=== PATIENT | female | born 1930 | race Caucasian/White ===

== ENCOUNTER 2016-10-16 08:42 | Emergency (ER) | payer MEDICARE, BC ==
--- NOTE | 2016-10-16 09:40 | ED ---
Female Urogenital HPI - General Chief complaint: Urogenital Stated complaint: uti Time Seen by Provider: 10/16/16 09:18 Source: patient, RN notes reviewed Mode of arrival: ambulatory Limitations: no limitations - History of Present Illness Initial comments: 85-year-old female presents emergency Department chief complaint dysuria. Patient states she's had frequency and dysuria over the last few days. Patient states she now has some lower abdominal pain. Patient denies any fever, chills , upper back pains. She states her some low back pain on the right. She denies any trauma. Denies any pain with range of motion, twisting bending. Patient states that she has no left-sided abdominal pain. She does admit to frequent UTIs. - Related Data Home Medications Medication Instructions Recorded Confirmed Ascorbic Acid [Vitamin C] 500 mg PO DAILY 10/16/16 10/16/16 Aspirin 81 mg PO DAILY 10/16/16 10/16/16 Baclofen [Lioresal] 5 mg PO BID 10/16/16 10/16/16 Calcium Carbonate/Vitamin D3 1 each PO DAILY 10/16/16 10/16/16 [Calcium 600-Vit D3 200 Tablet] Cyanocobalamin [Vitamin B-12] 500 mcg PO DAILY 10/16/16 10/16/16 Ergocalciferol [Vitamin D2] 50,000 unit PO Q7D 10/16/16 10/16/16 L.acidoph,Paracasei, B.lactis 1 each PO DAILY 10/16/16 10/16/16 [Probiotic] Losartan Potassium [Cozaar] 100 mg PO DAILY 10/16/16 10/16/16 Magnesium 200 mg PO DAILY 10/16/16 10/16/16 Meclizine [Antivert] 12.5 mg PO DAILY 10/16/16 10/16/16 Metoprolol Tartrate [Lopressor] 75 mg PO BID 10/16/16 10/16/16 Niacin [Niacin ER] 500 mg PO DAILY 10/16/16 10/16/16 [place]-3 Fatty Acids/Fish Oil [Fish 1 each PO DAILY 10/16/16 10/16/16 Oil 1,000 mg Softgel] Omeprazole [PriLOSEC] 20 mg PO DAILY 10/16/16 10/16/16 Potassium 99 mg PO DAILY 10/16/16 10/16/16 Turmeric Root Extract [Turmeric] 500 mg PO DAILY 10/16/16 10/16/16 Ubidecarenone [Co Q-10] 200 mg PO DAILY 10/16/16 10/16/16 Vitamin B Complex 1 each PO DAILY 10/16/16 10/16/16 Vitamin E 400 unit PO DAILY 10/16/16 10/16/16 cloNIDine HCL [Catapres] 0.1 mg PO DAILY PRN 10/16/16 10/16/16 Previous Rx's Medication Instructions Recorded Ciprofloxacin HCl [Cipro] 500 mg PO Q12HR #14 tablet 10/16/16 Allergies Allergy/AdvReac Type Severity Reaction Status Date / Time codeine Allergy Unknown Verified 10/16/16 09:04 nitrofurantoin Allergy Unknown Verified 10/16/16 09:04 [From Macrobid] tramadol [From Ultram] Allergy Unknown Verified 10/16/16 09:04 Review of Systems ROS Statement: Those systems with pertinent positive or pertinent negative responses have been documented in the HPI. ROS Other: All systems not noted in ROS Statement are negative. Past Medical History Past Medical History: Hypertension History of Any Multi-Drug Resistant Organisms: None Reported Past Surgical History: Adenoidectomy, Appendectomy, Back Surgery, Cholecystectomy, Hysterectomy, Tonsillectomy Additional Past Surgical History / Comment(s): cystocele, rectocele Past Psychological History: No Psychological Hx Reported Smoking Status: Never smoker Past Alcohol Use History: None Reported Past Drug Use History: None Reported General Exam Limitations: no limitations General appearance: alert, in no apparent distress Head exam: Present: atraumatic, normocephalic, normal inspection Respiratory exam: Present: normal lung sounds bilaterally. Absent: respiratory distress, wheezes, rales, rhonchi, stridor Cardiovascular Exam: Present: regular rate, normal rhythm, normal heart sounds. Absent: systolic murmur, diastolic murmur, rubs, gallop, clicks GI/Abdominal exam: Present: soft, tenderness (Mild tenderness in the suprapubic region), normal bowel sounds. Absent: distended, guarding, rebound, rigid Back exam: Present: full ROM. Absent: tenderness, CVA tenderness (R), CVA tenderness (L), muscle spasm, paraspinal tenderness, vertebral tenderness Skin exam: Present: warm, dry, intact, normal color. Absent: rash Course Vital Signs 10/16/16 09:01 Temperature 97.8 F Pulse Rate 74 Respiratory 20 Rate Blood Pressure 191/77 O2 Sat by Pulse 99 Oximetry Medical Decision Making - Medical Decision Making 85-year-old female presented for dysuria. Patient has UTI. Patient was started on ciprofloxacin. Patient urine was cultured. Return parameters were discussed. - Lab Data Lab Results 10/16/16 Range/Units 09:30 Urine Color Yellow Urine Appearance Clear (Clear) Urine pH 6.5 (5.0-8.0) Ur Specific [place] 1.017 (1.001-1.035) Urine Protein Trace H (Negative) Urine Glucose (UA) Negative (Negative) Urine Ketones Negative (Negative) Urine Blood Negative (Negative) Urine Nitrate Negative (Negative) Urine Bilirubin Negative (Negative) Urine Urobilinogen <2.0 (<2.0) mg/dL Ur Leukocyte Esterase Moderate H (Negative) Urine RBC 1 (0-5) /hpf Urine WBC 16 H (0-5) /hpf Ur Squamous Epith Cells <1 (0-4) /hpf Urine Bacteria Many H (None) /hpf Urine Mucus Rare H (None) /hpf Disposition Clinical Impression: Urinary tract infection Disposition: HOME SELF-CARE Condition: Stable Instructions: Urinary Tract Infection in Women (ED) Additional Instructions: Please return to the Emergency Department if symptoms worsen or any other concerns. Prescriptions: Ciprofloxacin HCl [Cipro] 500 mg PO Q12HR #14 tablet Time of Disposition: 10:02
[2016-10-16 09:48] LABS: Appearance,Urine Clear (Clear); Bacteria,Urine Many /hpf; Bilirubin,Urine Negative (Negative); Glucose,Urine (UA) Negative (Negative); Ketones,Urine Negative (Negative); Leukocyte Esterase,Urine Moderate (Negative); Mucus,Urine Rare /hpf; Nitrite,Urine Negative (Negative); PH, Urine 6.5 (5.0-8.0); Particle Count 8872; Protein,Urine Trace (Negative); RBC,Urine 1 /hpf (0-5); Specific Gravity,Urine 1.017 (1.001-1.035); Squamous Epithelial Cell,Urine <1 /hpf (0-4); UA Billing (MACRO vs. MICRO) MICRO; Urobilinogen,Urine <2.0 mg/dL (<2.0); WBC,Urine 16 /hpf (0-5)
[2016-10-16 10:11] VITALS: BP 152/84; PULSE 70; RESP 18; TEMP 97.5
== END 2016-10-16 10:11 | disposition home or self-care (01) ==
LOC: EC 08:42
DX: N39.0 Urinary tract infection, site not specified (principal); I10 Essential (primary) hypertension; Z88.5 Allergy status to narcotic agent; Z79.899 Other long term (current) drug therapy
CPT/HCPCS: 81001; 87077; 87086; 87186; 99283

== ENCOUNTER → 2016-12-28 | Outpatient (CLI) | payer MEDICARE, BC ==
--- NOTE | 2016-12-28 17:45 | US ---
EXAMINATION TYPE: US kidneys/renal and bladder DATE OF EXAM: 12/28/2016 5:30 PM COMPARISON: Prior in PACS CLINICAL HISTORY: R10.9 Abdominal pain. Recurrent UTIs EXAM MEASUREMENTS: Right Kidney: 10.3 x 4.7 x 4.5 cm Left Kidney: 9.7 x 5.1 x 4.0 cm Post Void Residual Volume: 96.2 mL Right Kidney: No hydronephrosis or masses seen, prominent column of luisa noted Left Kidney: No hydronephrosis or masses seen, prominent column of luisa noted Bladder: wnl Bilateral Jets seen: Yes Normal Post Void Residual: No IMPRESSION: Negative study
== END | disposition home or self-care (01) ==
LOC: RADUSWWP 16:59
PROVIDERS: ATTEND Internal Medicine Geriatric Medicine
DX: R10.9 Unspecified abdominal pain (principal)
CPT/HCPCS: 76770

== ENCOUNTER → 2017-01-07 | Outpatient (CLI) | payer MEDICARE, BC ==
--- NOTE | 2017-01-08 20:04 | MR ---
EXAMINATION TYPE: MR lumbar spine wo con DATE OF EXAM: 01/07/2017 10:57 AM COMPARISON: No comparisons at this location HISTORY: Lumbar stenosis CONTRAST: 0 mL intravenous MultiHance. TECHNIQUE: Multiplanar, multisequence images of the lumbar spine were acquired. FINDINGS: L5-S1: Disc bulging is present with mild anterior thecal sac compression. Laminectomy has been perfor med. Some susceptibility artifact from pedicle screws is evident. Foramen cannot be evaluated. L4-L5: There is loss of disc height through this level. No residual disc bulge is evident. No spinal canal stenosis. Neural foramen cannot be evaluated. Susceptibility artifact from pedicle screws is present. Laminectomy has been performed.. L3-L4: There is a left paracentral disc bulge with moderate anterior thecal sac compression. Correlat e with left L4 for radicular symptoms. No spinal canal stenosis. Right foramen appears patent. Left foramen is likely narrowed to moderate degree. L2-L3: There is loss of disc height to this level. Mild residual disc bulge has anterior thecal sac c ontact. Facet hypertrophy is present. Ligamentum flavum laxity is present with posterior lateral thec al sac compression. No spinal canal stenosis is evident. Neural foramen are patent. L1-L2: Mild disc bulge is present. This has anterior thecal sac contact. No spinal canal stenosis pre sent. Mild facet hypertrophy is present. Ligamentum flavum laxity is present. Neural foramen are felder nt. T12-L1: No significant disc bulge or disc herniation. No spinal canal stenosis. No foraminal stenos is. Neural foramen are patent. IMPRESSION: 1. 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 Moderate left paracentral disc bulge i s contributing to the stenosis. Correlate with left L4 radicular symptoms. 2. Multilevel loss of disc height. 3. Postsurgical changes L4 and L5. There is some limitation at these levels.
== END ==
LOC: RADMRIMAIN 09:47
PROVIDERS: ATTEND Orthopaedic Surgery
DX: M99.73 Connective tissue and disc stenosis of intervertebral foramina of lumbar region (principal); M51.26 Other intervertebral disc displacement, lumbar region
CPT/HCPCS: 72148

== ENCOUNTER → 2017-01-20 | Outpatient (CLI) | payer MEDICARE, BC ==
[2017-01-20 12:29] LABS: Appearance,Urine Clear (Clear); Basophils % (A) 0 %; Bilirubin,Urine Negative (Negative); CH 31.1; CHCM 32.1; Eosinophils # (A) 0.3 k/uL (0-0.7); Eosinophils % (A) 6 %; Glucose,Urine (UA) Negative (Negative); HCT 37.1 % (34.0-46.0); HGB 11.9 gm/dL (11.4-16.0); Ketones,Urine Negative (Negative); Leukocyte Esterase,Urine Small (Negative); Luc # (Auto) 0.17; Luc % (Auto) 3; Lymphocytes # (A) 1.7 k/uL (1.0-4.8); Lymphocytes % (A) 32 %; MCH 31.3 pg (25.0-35.0); MCHC 32.1 g/dL (31.0-37.0); MCV 97.4 fL (80.0-100.0); Mean Platelet Volume 7.2; Monocytes # (A) 0.5 k/uL (0-1.0); Monocytes % (A) 10 %; Mucus,Urine Rare /hpf; Neutrophils # (A) 2.7 k/uL (1.3-7.7); Neutrophils % (A) 49 %; Nitrite,Urine Negative (Negative); PH, Urine 5.5 (5.0-8.0); Particle Count 1819; Protein,Urine Negative (Negative); RBC 3.81 m/uL (3.80-5.40); RBC,Urine 1 /hpf (0-5); RDW 13.8 % (11.5-15.5); Specific Gravity,Urine 1.019 (1.001-1.035); Squamous Epithelial Cell,Urine 1 /hpf (0-4); UA Billing (MACRO vs. MICRO) MICRO; Urobilinogen,Urine <2.0 mg/dL (<2.0); WBC 5.4 k/uL (3.8-10.6); WBC (Perox) 6.01; WBC,Urine 4 /hpf (0-5)
[2017-01-20 12:34] LABS: INR 1.1 (<1.1); Partial Thromboplastin Time 22.7 sec (22.0-30.0); Prothrombin Time 10.7 sec (9.0-12.0)
[2017-01-20 12:41] LABS: ALT 32 U/L (9-52); AST 23 U/L (14-36); Alkaline Phosphatase 58 U/L (38-126); Anion Gap 9 mmol/L; Blood Urea Nitrogen 27 mg/dL (7-17); Calcium 9.8 mg/dL (8.4-10.2); Carbon Dioxide 25 mmol/L (22-30); Chloride 106 mmol/L (98-107); Glucose 103 mg/dL (74-99); Non-African American GFR(MDRD) 53 (>60 ml/min/1.73 sqM); Potassium 4.4 mmol/L (3.5-5.1); Sodium 140 mmol/L (137-145); Total Bilirubin 0.6 mg/dL (0.2-1.3); Total Protein 6.9 g/dL (6.3-8.2)
== END | disposition home or self-care (01) ==
LOC: LABWHC1 11:25
PROVIDERS: ATTEND Orthopaedic Surgery
DX: Z00.00 Encounter for general adult medical examination without abnormal findings (principal); D68.9 Coagulation defect, unspecified; R82.99 Other abnormal findings in urine
CPT/HCPCS: 36415; 80053; 81001; 85025; 85610; 85730; 86850; 86870; 86880; 86900; 86901; 87070; 87086

== ENCOUNTER 2017-03-28 09:25 | Emergency (ER) | payer MEDICARE, BC ==
[2017-03-28] MEDS ORDERED: SODIUM CHLORIDE 0.9% 1,000 ML IV ONE (10:16)
[2017-03-28] MEDS ORDERED: MORPHINE SULFATE 2 MG/ML SYRINGE IVP ONE (10:16)
[2017-03-28 10:17] LABS: Basophils % (A) 0 %; CH 30.1; Eosinophils # (A) 0.4 k/uL (0-0.7); Eosinophils % (A) 6 %; HCT 30.8 % (34.0-46.0); HDW 2.59; HGB 10.4 gm/dL (11.4-16.0); Luc # (Auto) 0.15; Luc % (Auto) 3; Lymphocytes # (A) 1.9 k/uL (1.0-4.8); Lymphocytes % (A) 33 %; MCH 31.8 pg (25.0-35.0); MCHC 33.8 g/dL (31.0-37.0); MCV 94.2 fL (80.0-100.0); Mean Platelet Volume 7.2; Monocytes # (A) 0.4 k/uL (0-1.0); Monocytes % (A) 7 %; Neutrophils % (A) 51 %; RBC 3.28 m/uL (3.80-5.40); RDW 13.6 % (11.5-15.5); WBC 5.9 k/uL (3.8-10.6); WBC (Perox) 5.97
[2017-03-28] MEDS ORDERED: ONDANSETRON 4 MG/2 ML VIAL IVP STA (10:17)
--- NOTE | 2017-03-28 10:23 | ED ---
Abdominal Pain HPI - General Chief Complaint: Abdominal Pain Stated Complaint: Diverticulosis Pain Time Seen by Provider: 03/28/17 09:49 Source: patient, RN notes reviewed Mode of arrival: wheelchair Limitations: no limitations - History of Present Illness Initial Comments: Patient is an 86-year-old female presents to the emergency room for evaluation of abdominal pain. Patient states on 03/14/17 she was diagnosed with diverticulitis and was placed on Flagyl by her primary care provider. Patient states she has been off of the Flagyl for about 10 days and is still continuing to have left lower quadrant pain. Patient also states that she's been placed on MiraLAX, Dulcolax and Colace for the past few weeks. Patient states she has been passing loose stools. Patient denies dark tarry stools or blood in stools. Patient states she is nauseous but denies vomiting. Patient denies fevers or chills. Patient states she has a history of appendectomy, cholecystectomy and hysterectomy. Patient denies history of bowel obstructions. Patient denies pain or burning during urination, trouble urinating or blood in urine. Patient denies chest pain or shortness of breath, headache or dizziness. Patient states her last colonoscopy was about 5 years ago. Patient states she was told that she does not need another one due to her age. - Related Data Home Medications Medication Instructions Recorded Confirmed Ergocalciferol [Vitamin D2] 50,000 unit PO Q14D 10/16/16 03/28/17 L.acidoph,Paracasei, B.lactis 1 cap PO DAILY 10/16/16 03/28/17 [Probiotic] Losartan Potassium [Cozaar] 100 mg PO DAILY 10/16/16 03/28/17 Omeprazole [PriLOSEC] 20 mg PO DAILY 10/16/16 03/28/17 Acetaminophen Tab [Tylenol Tab] 1,000 mg PO Q6HR PRN 03/28/17 03/28/17 Docusate [Colace] 200 mg PO HS 03/28/17 03/28/17 Meclizine [Antivert] 12.5 mg PO DAILY 03/28/17 03/28/17 Metoprolol Tartrate [Lopressor] 75 mg PO BID 03/28/17 03/28/17 Previous Rx's Medication Instructions Recorded Sulfamethox-Tmp 800-160Mg [Bactrim 1 tab PO Q12HR 7 Days 03/28/17 DS 800-160 mg] Allergies Allergy/AdvReac Type Severity Reaction Status Date / Time celecoxib [From Celebrex] Allergy Unknown Verified 03/28/17 10:19 codeine Allergy Unknown Verified 03/28/17 10:19 hydrocodone Allergy Unknown Verified 03/28/17 10:19 nitrofurantoin Allergy Unknown Verified 03/28/17 10:19 [From Macrobid] tramadol [From Ultram] Allergy Unknown Verified 03/28/17 10:19 Review of Systems ROS Statement: Those systems with pertinent positive or pertinent negative responses have been documented in the HPI. ROS Other: All systems not noted in ROS Statement are negative. Past Medical History Past Medical History: Hypertension History of Any Multi-Drug Resistant Organisms: None Reported Past Surgical History: Adenoidectomy, Appendectomy, Back Surgery, Cholecystectomy, Hysterectomy, Tonsillectomy Additional Past Surgical History / Comment(s): cystocele, rectocele Past Psychological History: No Psychological Hx Reported Smoking Status: Never smoker Past Alcohol Use History: None Reported Past Drug Use History: None Reported General Exam - General Exam Comments Initial Comments: Laying in exam room, no acute distress. Limitations: no limitations General appearance: alert, in no apparent distress Head exam: Present: atraumatic, normocephalic, normal inspection Eye exam: Present: normal appearance ENT exam: Present: normal exam Neck exam: Present: normal inspection Respiratory exam: Present: normal lung sounds bilaterally. Absent: respiratory distress Cardiovascular Exam: Present: regular rate, normal rhythm, normal heart sounds GI/Abdominal exam: Present: soft, tenderness (LLQ), normal bowel sounds. Absent : distended, guarding, rebound, rigid Extremities exam: Present: normal inspection Back exam: Present: normal inspection Neurological exam: Present: alert, oriented X3, CN II-XII intact, normal gait Psychiatric exam: Present: normal affect, normal mood Skin exam: Present: warm, dry, intact, normal color. Absent: rash Course Vital Signs 03/28/17 03/28/17 03/28/17 09:29 10:42 11:30 Temperature 98.9 F 99.9 F H 98.7 F Pulse Rate 72 69 60 Respiratory 20 16 18 Rate Blood Pressure 134/64 146/65 155/85 O2 Sat by Pulse 97 96 99 Oximetry 03/28/17 03/28/17 13:18 14:17 Temperature 98.0 F 97.6 F Pulse Rate 58 L 59 L Respiratory 19 19 Rate Blood Pressure 164/72 176/76 O2 Sat by Pulse 97 96 Oximetry Medical Decision Making - Medical Decision Making Patient is an 86-year-old female presents to the emergency room for evaluation of lower abdominal pain. Labs show no concerning findings. WBC within normal limits. Urinalysis suspicious for urinary tract infection. CT abdomen/pelvis showed no acute findings. Patient started on Rocephin IV and will be sent home on Bactrim. Patient does state she has a history of recurrent urinary tract infections. Patient advised to follow-up with urologist. Advised patient to discontinue laxatives since no sign of constipation or diverticulitis. Patient' s family and patient states they understand everything that was discussed with them. Return parameters discussed. Case discussed with Dr. Bird. - Lab Data Result diagrams: 03/28/17 10:02 03/28/17 10:02 Lab Results 03/28/17 03/28/17 03/28/17 Range/Units 10:02 10:02 10:05 WBC 5.9 (3.8-10.6) k/uL RBC 3.28 L (3.80-5.40) m/uL Hgb 10.4 L (11.4-16.0) gm/dL Hct 30.8 L (34.0-46.0) % MCV 94.2 (80.0-100.0) fL MCH 31.8 (25.0-35.0) pg MCHC 33.8 (31.0-37.0) g/dL RDW 13.6 (11.5-15.5) % Plt Count 259 (150-450) k/uL Neutrophils % 51 % Lymphocytes % 33 % Monocytes % 7 % Eosinophils % 6 % Basophils % 0 % Neutrophils # 3.0 (1.3-7.7) k/uL Lymphocytes # 1.9 (1.0-4.8) k/uL Monocytes # 0.4 (0-1.0) k/uL Eosinophils # 0.4 (0-0.7) k/uL Basophils # 0.0 (0-0.2) k/uL Sodium 138 (137-145) mmol/L Potassium 4.2 (3.5-5.1) mmol/L Chloride 103 (98-107) mmol/L Carbon Dioxide 22 (22-30) mmol/L Anion Gap 13 mmol/L BUN 12 (7-17) mg/dL Creatinine 0.70 (0.52-1.04) mg/dL Est GFR (MDRD) Af Amer >60 (>60 ml/min/1.73 sqM) Est GFR (MDRD) Non-Af >60 (>60 ml/min/1.73 sqM) Glucose 173 H (74-99) mg/dL Calcium 10.0 (8.4-10.2) mg/dL Total Bilirubin 0.3 (0.2-1.3) mg/dL AST 18 (14-36) U/L ALT 25 (9-52) U/L Alkaline Phosphatase 60 (38-126) U/L Total Protein 6.5 (6.3-8.2) g/dL Albumin 3.9 (3.5-5.0) g/dL Amylase 43 (30-110) U/L Lipase 21 L (23-300) U/L Urine Color Yellow Urine Appearance Cloudy H (Clear) Urine pH 5.5 (5.0-8.0) Ur Specific [place] 1.017 (1.001-1.035) Urine Protein 1+ H (Negative) Urine Glucose (UA) Negative (Negative) Urine Ketones Negative (Negative) Urine Blood Negative (Negative) Urine Nitrite Positive H (Negative) Urine Bilirubin Negative (Negative) Urine Urobilinogen <2.0 (<2.0) mg/dL Ur Leukocyte Esterase Large H (Negative) Urine RBC 11 H (0-5) /hpf Urine WBC >182 H (0-5) /hpf Ur Squamous Epith Cells 2 (0-4) /hpf Urine Bacteria Few H (None) /hpf Hyaline Casts 4 H (0-2) /lpf Urine Mucus Rare H (None) /hpf - Radiology Data Radiology results: report reviewed, image reviewed Disposition Clinical Impression: Urinary tract infection Disposition: HOME SELF-CARE Condition: Good Instructions: Urinary Tract Infection in Women (ED) Additional Instructions: Take antibiotics as directed. Drink plenty of water. Please follow up with primary care provider or urologist for further evaluation. If any new symptom arises or symptoms worsen, return to ER as soon as possible. Prescriptions: Sulfamethox-Tmp 800-160Mg [Bactrim DS 800-160 mg] 1 tab PO Q12HR 7 Days Referrals: Flaco Amor MD [Primary Care Provider] - 1-2 days Justin Jansen MD [STAFF PHYSICIAN] - 1-2 days Time of Disposition: 13:57
[2017-03-28 10:26] LABS: Appearance,Urine Cloudy (Clear); Bacteria,Urine Few /hpf; Bilirubin,Urine Negative (Negative); Glucose,Urine (UA) Negative (Negative); Ketones,Urine Negative (Negative); Leukocyte Esterase,Urine Large (Negative); Mucus,Urine Rare /hpf; Nitrite,Urine Positive (Negative); PH, Urine 5.5 (5.0-8.0); Particle Count 6860; Protein,Urine 1+ (Negative); RBC,Urine 11 /hpf (0-5); Specific Gravity,Urine 1.017 (1.001-1.035); Squamous Epithelial Cell,Urine 2 /hpf (0-4); UA Billing (MACRO vs. MICRO) MICRO; Urobilinogen,Urine <2.0 mg/dL (<2.0); WBC,Urine >182 /hpf (0-5)
[2017-03-28 10:33] LABS: ALT 25 U/L (9-52); AST 18 U/L (14-36); Alkaline Phosphatase 60 U/L (38-126); Amylase 43 U/L (30-110); Anion Gap 13 mmol/L; Blood Urea Nitrogen 12 mg/dL (7-17); Carbon Dioxide 22 mmol/L (22-30); Chloride 103 mmol/L (98-107); Glucose 173 mg/dL (74-99); Non-African American GFR(MDRD) >60 (>60 ml/min/1.73 sqM); Potassium 4.2 mmol/L (3.5-5.1); Sodium 138 mmol/L (137-145); Total Bilirubin 0.3 mg/dL (0.2-1.3); Total Protein 6.5 g/dL (6.3-8.2)
--- NOTE | 2017-03-28 10:57 | XR ---
EXAMINATION TYPE: XR KUB DATE OF EXAM: 03/28/2017 10:48 AM CLINICAL HISTORY: Abdominal pain, history of diverticulitis TECHNIQUE: 2 upright KUB images of the abdomen are obtained. COMPARISON: None. FINDINGS: There is some paucity of bowel gas. Scattered gas is seen in nondistended bowel loops throu ghout the abdomen and pelvis. Cholecystectomy clips are present. Extensive postsurgical change lumbar spine is seen. No pneumoperitoneum is identified. Slightly elevated right hemidiaphragm is noted. Pettit rgical clips medial right lower chest likely within breast. Moderate joint space loss both hips is no marco. IMPRESSION: Overall nonspecific favor nonobstructive bowel gas pattern.
--- NOTE | 2017-03-28 12:19 | CT ---
EXAMINATION TYPE: CT abdomen pelvis wo con DATE OF EXAM: 03/28/2017 COMPARISON: NONE HISTORY: 86-year-old female Patient complains of left flank pain. CT DLP: 927 mGycm. Automated exposure control for dose reduction was used. TECHNIQUE: Contiguous axial scanning of the abdomen and pelvis without IV contrast. Coronal and sagit igor reconstructions performed. FINDINGS: There is some scarring suggested along the medial lower anterior right thoracic wall with adjacent kendrick rgical clips. Patchy reticular subpleural density in the peripheral right middle lobe. Dependent area s of atelectasis. No pleural effusion. Small hiatal hernia. Noncontrast appearance of the liver and atrophic pancreas shows no gross abnormality. Subcentimeter hyperdense lesion medial upper pole right kidney probably a small hemorrhagic cyst. The re are proximally 3 calculi in the right kidney measuring up to 3 mm. Calcified granuloma in the spleen. Mild diffuse thickening of the adrenal glands without discrete nod ularity. There is no hydronephrosis on either side or suspicious calcification along the course of either uret er. Mild diffuse wall thickening of the stomach could relate to nondistention. Mild to moderate apical scarring calcifications within the abdominal aorta without aneurysm. No dilated small bowel, free fluid, or free air. No mesenteric or retroperitoneal lymphadenopathy. Mild to moderate stool in the right hemicolon. No pericolonic inflammatory change. Some air is seen nondependent within the bladder. Uterus is surgically absent. Both ovaries are visua lized. No abnormal fluid collection in the pelvis or pelvic lymphadenopathy. There is pelvic floor re laxation and some bladder prolapse along the pelvic floor, (sagittal image 54 and axial image 136 Bones: Extensive posterior lumbar fusion from L1 through S1 1 levels and corresponding laminectomies. IMPRESSION: 1. Mild diffuse wall thickening of the stomach could relate to nondistention. Correlate for gastriti s or infiltrative process. Direct visualization as indicated. 2. Some patchy subpleural opacity within the right middle lobe suspected to represent pleural parenc hymal scarring. Query any prior surgery or radiation to the right chest wall. Follow-up as indicated. 3. Pelvic floor relaxation with some inferior bladder prolapse. 4. Nondependent intraluminal bladder air could relate to catheterization or infection. Clinically co rrelate. 5. Right-sided nephrolithiasis. No suspicious ureteral calculus or hydronephrosis. 6. Small hiatal hernia.
[2017-03-28 13:20] VITALS: RESP 19
[2017-03-28 14:18] VITALS: BP 176/76; PULSE 59; TEMP 97.6
== END 2017-03-28 14:18 | disposition home or self-care (01) ==
LOC: EC 09:25
DX: N39.0 Urinary tract infection, site not specified (principal); R10.32 Left lower quadrant pain; R11.0 Nausea; I10 Essential (primary) hypertension; Z79.899 Other long term (current) drug therapy; Z88.5 Allergy status to narcotic agent; Z88.6 Allergy status to analgesic agent; Z88.8 Allergy status to other drugs, medicaments and biological substances; Z87.19 Personal history of other diseases of the digestive system; Z90.49 Acquired absence of other specified parts of digestive tract
CPT/HCPCS: 36415; 80053; 82150; 83690; 85025; 81001; 87086; 74000; 74176; 99284; 96365; 96375 ×2; 96361; J2405; J0696; J2270

== ENCOUNTER 2017-06-25 09:28 | Emergency (ER) | payer MEDICARE, BC ==
[2017-06-25 09:50] VITALS: RESP 18
[2017-06-25] MEDS ORDERED: SODIUM CHLORIDE 0.9% 1,000 ML IV STA (10:23)
[2017-06-25] MEDS ORDERED: SODIUM CHLORIDE 0.9% 500 ML IV STA (10:23)
[2017-06-25] MEDS ORDERED: METOCLOPRAMIDE 10 MG TAB PO STA (10:24)
[2017-06-25] MEDS ORDERED: LORazepam 1 MG TAB PO STA (10:24)
[2017-06-25 11:16] LABS: Basophils % (A) 1 %; CH 28.9; CHCM 30.5; Eosinophils # (A) 0.3 k/uL (0-0.7); Eosinophils % (A) 4 %; HCT 37.1 % (34.0-46.0); HDW 2.27; HGB 11.6 gm/dL (11.4-16.0); Hypochromasia Slight; Luc # (Auto) 0.23; Luc % (Auto) 3; Lymphocytes % (A) 27 %; MCH 29.7 pg (25.0-35.0); MCHC 31.2 g/dL (31.0-37.0); Mean Platelet Volume 6.8; Monocytes # (A) 0.5 k/uL (0-1.0); Monocytes % (A) 7 %; Neutrophils # (A) 4.2 k/uL (1.3-7.7); Neutrophils % (A) 58 %; RBC 3.91 m/uL (3.80-5.40); RDW 15.3 % (11.5-15.5); WBC 7.1 k/uL (3.8-10.6); WBC (Perox) 7.12
[2017-06-25 11:25] LABS: ALT 30 U/L (9-52); AST 23 U/L (14-36); Alkaline Phosphatase 61 U/L (38-126); Anion Gap 11 mmol/L; Blood Urea Nitrogen 17 mg/dL (7-17); Calcium 9.5 mg/dL (8.4-10.2); Carbon Dioxide 23 mmol/L (22-30); Chloride 105 mmol/L (98-107); Glucose 105 mg/dL (74-99); Non-African American GFR(MDRD) >60 (>60 ml/min/1.73 sqM); Potassium 4.6 mmol/L (3.5-5.1); Sodium 139 mmol/L (137-145); Total Bilirubin 0.2 mg/dL (0.2-1.3)
--- NOTE | 2017-06-25 11:56 | CT ---
EXAMINATION TYPE: CT brain wo con DATE OF EXAM: 06/25/2017 COMPARISON: NONE HISTORY: dizziness, elevated BP CT DLP: 982.3 mGycm Automated exposure control for dose reduction was used. FINDINGS: There are generalized changes of sulcal prominence and ventriculomegaly, compatible with atrophic tavia nge. There is diffuse periventricular white matter lucency, compatible with chronic white matter isch emic change. There is no acute focal lesion, mass effect or midline shift identified. I do not see ev idence of intracranial blood. Visualized portions of the paranasal sinuses and mastoids are clear. No depressed skull fracture is s een. IMPRESSION: 1. NO ACUTE INTRACRANIAL ABNORMALITY. 2. ATROPHIC CHANGE. 3. CHRONIC WHITE MATTER ISCHEMIC CHANGE.
[2017-06-25 12:24] LABS: Appearance,Urine Clear (Clear); Bacteria,Urine Many /hpf; Bilirubin,Urine Negative (Negative); Glucose,Urine (UA) Negative (Negative); Ketones,Urine Negative (Negative); Leukocyte Esterase,Urine Moderate (Negative); Nitrite,Urine Negative (Negative); Particle Count 4826; Protein,Urine Negative (Negative); Specific Gravity,Urine 1.005 (1.001-1.035); Squamous Epithelial Cell,Urine <1 /hpf (0-4); UA Billing (MACRO vs. MICRO) MICRO; Urobilinogen,Urine <2.0 mg/dL (<2.0); WBC,Urine 12 /hpf (0-5)
--- NOTE | 2017-06-25 12:39 | ED ---
Dizziness HPI - General Chief Complaint: Dizziness Stated Complaint: high bp; dizziness; nausea Time Seen by Provider: 06/25/17 10:08 Source: patient Mode of arrival: wheelchair Limitations: no limitations - History of Present Illness Initial Comments: 86-year-old female complaining about dizziness ongoing for about 2 days she noticed her blood pressure was quite high but in the ER today it is fine. She is complaining about nausea no vomiting she denies any headache no neck stiffness no chest pain or shortness of breath she denies any sinus symptoms of TIA or CVA - Related Data Home Medications Medication Instructions Recorded Confirmed Ergocalciferol [Vitamin D2] 50,000 unit PO Q14D 10/16/16 03/28/17 L.acidoph,Paracasei, B.lactis 1 cap PO DAILY 10/16/16 03/28/17 [Probiotic] Losartan Potassium [Cozaar] 100 mg PO DAILY 10/16/16 03/28/17 Omeprazole [PriLOSEC] 20 mg PO DAILY 10/16/16 03/28/17 Acetaminophen Tab [Tylenol Tab] 1,000 mg PO Q6HR PRN 03/28/17 03/28/17 Docusate [Colace] 200 mg PO HS 03/28/17 03/28/17 Meclizine [Antivert] 12.5 mg PO DAILY 03/28/17 03/28/17 Metoprolol Tartrate [Lopressor] 75 mg PO BID 03/28/17 03/28/17 Previous Rx's Medication Instructions Recorded Sulfamethox-Tmp 800-160Mg [Bactrim 1 tab PO Q12HR 7 Days 03/28/17 DS 800-160 mg] Amoxic-Pot Clav 500-125 mg 1 tab PO Q12HR #14 tab 06/25/17 [Augmentin 500-125 mg] Allergies Allergy/AdvReac Type Severity Reaction Status Date / Time celecoxib [From Celebrex] Allergy Unknown Verified 06/25/17 09:50 codeine Allergy Unknown Verified 06/25/17 09:50 hydrocodone Allergy Unknown Verified 06/25/17 09:50 nitrofurantoin Allergy Unknown Verified 06/25/17 09:50 [From Macrobid] tramadol [From Ultram] Allergy Unknown Verified 06/25/17 09:50 Review of Systems ROS Statement: Those systems with pertinent positive or pertinent negative responses have been documented in the HPI. ROS Other: All systems not noted in ROS Statement are negative. Past Medical History Past Medical History: Hyperlipidemia, Hypertension, Mitral Valve Prolapse (MVP) , Syncope Additional Past Medical History / Comment(s): "urinary tract trouble", vertigo History of Any Multi-Drug Resistant Organisms: None Reported Past Surgical History: Adenoidectomy, Appendectomy, Back Surgery, Cholecystectomy, Hysterectomy, Tonsillectomy Additional Past Surgical History / Comment(s): cystocele, rectocele, back surgery 02/16/2017 Past Psychological History: No Psychological Hx Reported Smoking Status: Never smoker Past Alcohol Use History: None Reported Past Drug Use History: None Reported General Exam - General Exam Comments Initial Comments: General: The patient is awake and alert, in no distress, and does not appear acutely ill. GCS is 15 Skin: Skin is warm and dry and no rashes or lesions are noted. Eye: Pupils are equal, round and reactive to light, extra-ocular movements are intact; there is normal conjunctiva bilaterally. Ears, nose, mouth and throat: There are moist mucous membranes and no oral lesions. Neck: The neck is supple, there is no tenderness or JVD. Cardiovascular: There is a regular rate and rhythm. No murmur, rub or gallop is appreciated. Respiratory: To auscultation bilateral, no wheezing no rhonchi no distress respiratory graves noticed Gastrointestinal: Soft, non-distended, non-tender abdomen without masses or organomegaly noted. There is no rebound or guarding present. Bowel sounds are unremarkable. Back: There is no tenderness to palpation in the midline. There is no obvious deformity. Musculoskeletal: Normal ROM, no tenderness, There is no pedal edema. There is no calf tenderness or swelling. No cords were appreciated. Neurological: CN II-XII intact, Cranial nerves III through XII are intact. There are no obvious motor or sensory deficits. Coordination appears grossly intact. Speech is normal. Psychiatric: Cooperative, appropriate mood & affect, normal judgment. Limitations: no limitations Course Vital Signs 06/25/17 06/25/17 06/25/17 09:44 11:09 11:29 Temperature 97.5 F L Pulse Rate 60 57 L 56 L Respiratory 18 18 18 Rate Blood Pressure 147/64 133/64 139/56 O2 Sat by Pulse 97 96 96 Oximetry - Reevaluation(s) Reevaluation #1: She was reassessed at 1230, she simply trying a discussed her lab findings a urinalysis is positive for UTI head CT is normal CBC and compressive metabolic panel looks good and she feels better she be discharged home on Augmentin 500 mg 3 times a day for 7 days she will follow with family doctor and she will also take some reglan 5 mg every 12 when necessary 06/25/17 12:36 EKG Findings - EKG Comments: EKG Findings:: EKG normal sinus rhythm home that bradycardia ventricular rate is 68 [place] [address] QRS duration is 82 QT/QTc is 458/449. This EKG does not appear any ST elevation or ST depression Medical Decision Making - Lab Data Result diagrams: 06/25/17 11:05 06/25/17 11:05 Lab Results 06/25/17 06/25/17 06/25/17 Range/Units 11:05 11:05 11:47 WBC 7.1 (3.8-10.6) k/uL RBC 3.91 (3.80-5.40) m/uL Hgb 11.6 (11.4-16.0) gm/dL Hct 37.1 (34.0-46.0) % MCV 95.0 (80.0-100.0) fL MCH 29.7 (25.0-35.0) pg MCHC 31.2 (31.0-37.0) g/dL RDW 15.3 (11.5-15.5) % Plt Count 249 (150-450) k/uL Neutrophils % 58 % Lymphocytes % 27 % Monocytes % 7 % Eosinophils % 4 % Basophils % 1 % Neutrophils # 4.2 (1.3-7.7) k/uL Lymphocytes # 2.0 (1.0-4.8) k/uL Monocytes # 0.5 (0-1.0) k/uL Eosinophils # 0.3 (0-0.7) k/uL Basophils # 0.0 (0-0.2) k/uL Hypochromasia Slight Sodium 139 (137-145) mmol/L Potassium 4.6 (3.5-5.1) mmol/L Chloride 105 (98-107) mmol/L Carbon Dioxide 23 (22-30) mmol/L Anion Gap 11 mmol/L BUN 17 (7-17) mg/dL Creatinine 0.73 (0.52-1.04) mg/dL Est GFR (MDRD) Af Amer >60 (>60 ml/min/1.73 sqM) Est GFR (MDRD) Non-Af >60 (>60 ml/min/1.73 sqM) Glucose 105 H (74-99) mg/dL Calcium 9.5 (8.4-10.2) mg/dL Total Bilirubin 0.2 (0.2-1.3) mg/dL AST 23 (14-36) U/L ALT 30 (9-52) U/L Alkaline Phosphatase 61 (38-126) U/L Total Protein 7.0 (6.3-8.2) g/dL Albumin 4.0 (3.5-5.0) g/dL Urine Color Light Yellow Urine Appearance Clear (Clear) Urine pH 7.0 (5.0-8.0) Ur Specific [place] 1.005 (1.001-1.035) Urine Protein Negative (Negative) Urine Glucose (UA) Negative (Negative) Urine Ketones Negative (Negative) Urine Blood Negative (Negative) Urine Nitrite Negative (Negative) Urine Bilirubin Negative (Negative) Urine Urobilinogen <2.0 (<2.0) mg/dL Ur Leukocyte Esterase Moderate H (Negative) Urine WBC 12 H (0-5) /hpf Ur Squamous Epith Cells <1 (0-4) /hpf Urine Bacteria Many H (None) /hpf Disposition Clinical Impression: Dizziness, UTI (urinary tract infection) Disposition: HOME SELF-CARE Condition: Good Instructions: Dizziness (ED) Prescriptions: Amoxic-Pot Clav 500-125 mg [Augmentin 500-125 mg] 1 tab PO Q12HR #14 tab Referrals: Flaco Amor MD [Primary Care Provider] - 1-2 days
[2017-06-25 13:10] VITALS: BP 112/65; PULSE 91; TEMP 97.1
== END 2017-06-25 13:08 | disposition home or self-care (01) ==
LOC: EC 09:28
DX: N39.0 Urinary tract infection, site not specified (principal); R42 Dizziness and giddiness; R40.2412 Glasgow coma scale score 13-15, at arrival to emergency department; I34.1 Nonrheumatic mitral (valve) prolapse; I10 Essential (primary) hypertension; Z79.899 Other long term (current) drug therapy; Z88.1 Allergy status to other antibiotic agents; Z88.5 Allergy status to narcotic agent; Z88.6 Allergy status to analgesic agent; Z88.8 Allergy status to other drugs, medicaments and biological substances
CPT/HCPCS: 36415; 70450; 80053; 81001; 85025; 93005; 96360; 99284

== ENCOUNTER → 2017-10-04 | Outpatient (CLI) | payer MEDICARE, BC ==
--- NOTE | 2017-10-04 11:46 | BD ---
EXAMINATION TYPE: MG DEXA axial skeleton. DATE OF EXAM: 10/04/2017 COMPARISON: NONE CLINICAL HISTORY: Osteoporosis screening . Postmenopausal female. Height: 5 FT Weight: 159 FRAX RISK QUESTIONS: Alcohol (3 or more units per day): NO Family History (Parent hip fracture): NO Glucocorticoids (More than 3mos): NO (Ex: prednisone, prednisolone, methylprednisolone, dexamethasone, and hydrocortisone). History of Fracture in Adulthood: NO Secondary Osteoporosis: 1. Type 1 Diabetes: NO 2. Hyperthyroidism: NO 3. Menopause before 45: NO 4. Malnutrition: NO 5. Chronic liver disease: NO Rheumatoid Arthritis: NO Current Tobacco Use: NO RISK FACTORS HISTORY OF: Surgery to Spine/Hip(right/left)/Wrist (right/left): LUMBAR SURG X3 When: Active: YES Postmenopausal woman: AGE 50 Take estrogen and/or progesterone medications: TOOK FROM AGE [age] NO LONGER Lost more than 2 inches in height since high school: YES MEDICATIONS: Additional Medications: METOPROLOL, LOSARTIN, MEDIZINE, VIT D3, Additional History: EXAM MEASUREMENTS: Bone mineral density about the R hip (g/cm2): 0.684 Bone mineral density about the L hip (g/cm2): 0.705 T Score values are as follows: -----R Neck: -2.5 -----L Neck: -2.4 -----R Total: -1.7 -----L Total: -1.9 BASELINE IMPRESSION: Osteopenia (T Score between -2.5 and -1) as noted by T score values with regards to both hips. Values approach osteoporosis. There is slightly increased risk of fracture and the patient may be considered for treatment. Re-Screen 2-5 years. NOTE: T-SCORE=SD OF THE YOUNG ADULT MEAN.
--- NOTE | 2017-10-06 07:22 | MM ---
Reason for exam: screening (asymptomatic). Last mammogram was performed 1 year and 3 months ago. History: Patient is postmenopausal and history of breast cancer. Family history of breast cancer in paternal aunt. Radiation therapy of the right breast, June 2010. Took progesterone for 20 years. Physical Findings: A clinical breast exam by your physician is recommended on an annual basis and results should be correlated with mammographic findings. MG 3D Screening Mammo W/Cad Bilateral CC and MLO view(s) were taken. Prior study comparison: July 04, 2016, mammogram, performed at [facility]. June 19, 2013, mammogram, performed at [facility]. The breast tissue is heterogeneously dense. This may lower the sensitivity of mammography. Stable benign calcifications. Focal asymmetry upper outer left breast 4cm from nipple. This finding is changed when compared with previous exams. ASSESSMENT: Incomplete: need additional imaging evaluation, BI-RAD 0 RECOMMENDATION: Special view mammogram of the left breast. If lesion persists on supplemental views, image directed ultrasound is recommended. [facility] will attempt to contact patient to return for supplemental views and ultrasound if indicated.
== END | disposition home or self-care (01) ==
LOC: RADMAMWWP 10:23
PROVIDERS: ATTEND Internal Medicine Geriatric Medicine
DX: M85.852 Other specified disorders of bone density and structure, left thigh (principal); M85.851 Other specified disorders of bone density and structure, right thigh
CPT/HCPCS: 77063; 77067; 77080

== ENCOUNTER → 2017-10-11 | Outpatient (CLI) | payer MEDICARE, BC ==
--- NOTE | 2017-10-11 13:54 | MM ---
Reason for exam: additional evaluation requested from abnormal screening. Last mammogram was performed less than 1 month ago. History: Patient is postmenopausal and history of breast cancer. Family history of breast cancer in paternal aunt. Radiation therapy of the right breast, June 2010. Took progesterone for 20 years. Physical Findings: Nurse did not find any significant physical abnormalities on exam. MG 3D Work Up W/Cad LT CC, MLO, ML, spot compression CC, and spot compression MLO view(s) were taken of the left breast. Prior study comparison: October 04, 2017, bilateral MG 3d screening mammo w/cad. July 04, 2016, mammogram, performed at [facility]. June 19, 2013, mammogram, performed at [facility]. The breast tissue is heterogeneously dense. This may lower the sensitivity of mammography. Finding: There is a 6 mm equal density, circumscribed irregular mass located 5 cm from the nipple in the lower outer quadrant, middle position of the left breast, this is developing. New finding since July 04, 2016. These results were verbally communicated with the patient and result sheet given to the patient on 10/11/17. ASSESSMENT: Incomplete: need additional imaging evaluation, BI-RAD 0 RECOMMENDATION: Ultrasound of the left breast.
--- NOTE | 2017-10-11 14:00 | USB ---
Reason for exam: additional evaluation requested from abnormal screening. History: Patient is postmenopausal and history of breast cancer. Family history of breast cancer in paternal aunt. Radiation therapy of the right breast, June 2010. Took progesterone for 20 years. US Breast Workup Limited LT Left breast ultrasound demonstrates a 0.5 x 0.4 x 0.4cm solid, lesion at 5 o'clock, suspicious, biopsy recommended. These results were verbally communicated with the patient and result sheet given to the patient on 10/11/17. ASSESSMENT: Suspicious, BI-RAD 4 RECOMMENDATION: Surgical consultation and ultrasound core biopsy of the left breast. Called Dr. Amor with mammographic findings and has scheduled an appointment for the patient for 10/19/17 at 10:[address] Delgado. PRELIMINARY REPORT CALLED AND FAXED TO DR. DELGADO ON 10/11/17.
== END | disposition home or self-care (01) ==
LOC: RADMAMWWP 10:01
PROVIDERS: ATTEND Internal Medicine Geriatric Medicine
DX: R92.8 Other abnormal and inconclusive findings on diagnostic imaging of breast (principal)
CPT/HCPCS: 77065; 76642; G0279

== ENCOUNTER → 2017-11-28 | Day surgery (SDC) | payer MEDICARE, BC ==
[2017-11-28 13:45] VITALS: RESP 16
[2017-11-28 14:11] VITALS: BP 140/66; PULSE 70; TEMP 98.7; BMI 30.4
--- NOTE | 2017-11-28 14:31 | USB ---
Reason for exam: clinical finding. History: Patient is postmenopausal and has history of breast cancer at age 86. Family history of breast cancer in paternal aunt. Malignant US biopsy breast VAD LT of the left breast, October 30, 2017. Radiation therapy of the right breast, June 2010. Took progesterone for 20 years. US Breast Limited LT Left breast ultrasound demonstrates a 0.9 x 0.9 x 0.5cm irregular, solid, hypoechoic, vascular lesion at 2 o'clock. These results were verbally communicated with the patient and result sheet given to the patient on 11/28/17. ASSESSMENT: Suspicious, BI-RAD 4 RECOMMENDATION: Ultrasound core biopsy of the left breast.
--- NOTE | 2017-11-28 15:30 | USB ---
EXAMINATION TYPE: US biopsy breast VAD LT DATE OF EXAM: 11/28/2017 CLINICAL HISTORY: R92.8 ABNORMAL MAMMOGRAM. TECHNIQUE: Ultrasound guided core biopsy of left breast. COMPARISON: Mammogram 10/11/2017, 10/30/2017 FINDINGS: Mammographic images and ultrasound images were reviewed for wire localization. Given the positive malignancy results at the prior ultrasound biopsy site, in retrospect examination there appears to be a suspicious persistent density on mammogram. Has this would change the patient's surgery and management if this second area is positive report was called case discussed with Dr. Nichols by Dr. Salgado. An ultrasound will be performed. If the ultrasound is positive biopsy. Ultrasound had suspicious findings in the patient was set up for an ultrasound guided core biopsy. The procedure of ultrasound guided core biopsy was explained to the patient. Benefits, alternatives, and risks were discussed. An informed consent was then obtained. A timeout was performed. The patient was placed in supine positioning for imaging and for the procedure. The overlying skin was prepped and draped in usual sterile fashion. Lidocaine buffered with bicarbonate was used as anesthetic into the skin and subcutaneous tissue up to area of concern in the left breast. A armin was made with surgical scalpel. Under ultrasound guidance, a 12-gauge vacuum assisted biopsy gun device was used to obtain 6 core samples. Following this, a biopsy clip was left in lesion. The patient tolerated the procedure well without any immediate complication. Bleeding was controlled with direct pressure. Discharge instructions were discussed patient. The patient will follow-up with Dr. Nichols for the results week. Post procedure mammogram was obtained. Coil Clip is in the location of the second identified density. Ribbon clip at the patient's positive malignancy biopsy is evident. IMPRESSION: 1. Successful ultrasound-guided core biopsy left breast upper outer quadrant ultrasound abnormality with subsequent coil clip placement. Recommendations: 1. Final recommendations are pending pathology at the second biopsy site. 2. Treatment and follow-up of the malignancy at the first biopsy site will be required. Pathology Results: Malignant BREAST, LEFT, 2:00, CORE BIOPSY: INVASIVE DUCTAL CARCINOMA. SEE SURGICAL PATHOLOGY CANCER CASE SUMMARY Recommendation Surgical consult of the left breast. [facility]
--- NOTE | 2017-11-29 08:17 | MM ---
Reason for exam: additional evaluation requested from abnormal screening. Last mammogram was performed 1 month ago. History: Patient is postmenopausal and has history of breast cancer at age 86. Family history of breast cancer in paternal aunt. Malignant US biopsy breast VAD LT of the left breast, October 30, 2017. Radiation therapy of the right breast, June 2010. Took progesterone for 20 years. MG Diagnostic Mammo LT Wo CAD CC and LM view(s) were taken of the left breast. Prior study comparison: October 30, 2017, left breast MG diagnostic mammo LT wo CAD. October 11, 2017, left breast MG 3d work up w/cad LT. ASSESSMENT: Post procedure mammogram for marker placement RECOMMENDATION: Ultrasound of the left breast in 6 months. PENDING PATHOLOGY RESULTS.
== END ==
LOC: RADUSWWP 12:35
PROVIDERS: ATTEND Surgery
DX: C50.412 Malignant neoplasm of upper-outer quadrant of left female breast (principal)
CPT/HCPCS: 88305; 77065; 19083; 76642; A4648; J2001

== ENCOUNTER → 2017-11-28 | Day surgery (SDC) | payer MEDICARE, BC ==
[2017-11-22 11:13] VITALS: BMI 30.4
[~2017-11-28] MED LIST: ALPRAZolam 0.25 MG TAB PO ONE; DEXAMETHASONE SOD PHOSPHATE 10 MG/ML 1 ML VIAL IV ONE; LACTATED RINGERS 1,000 ML IV SCH; LIDOCAINE 1% 20 ML VIAL (10MG/ML) FOR IV START INTRADERMA PRN; MIDAZOLAM 2 MG/2 ML VIAL IV PRN; MORPHINE SULFATE 4 MG/ML SYRINGE IV PRN; MORPHINE SULFATE 4 MG/ML SYRINGE IVP PRN; ONDANSETRON 4 MG/2 ML VIAL IVP ONE; Pre Op ABX Message 1 EACH MISC MISCELLANE ONE; SCOPOLAMINE 1.5MG/72HR PATCH TRANSDERM ONE
[2017-11-28 10:54] VITALS: BP 191/79; PULSE 63; RESP 18; TEMP 97.6
== END ==
LOC: OR 10:30
PROVIDERS: ATTEND Surgery
DX: R92.8 Other abnormal and inconclusive findings on diagnostic imaging of breast (principal); Z53.8 Procedure and treatment not carried out for other reasons

== ENCOUNTER 2017-12-12 08:34 | Inpatient (IN) | payer MEDICARE, BC ==
[2017-12-05 12:57] VITALS: BMI 30.4
[~2017-12-12 08:34] MED LIST changes: -ALPRAZolam 0.25 MG TAB PO ONE; -DEXAMETHASONE SOD PHOSPHATE 10 MG/ML 1 ML VIAL IV ONE; -LACTATED RINGERS 1,000 ML IV SCH; -MIDAZOLAM 2 MG/2 ML VIAL IV PRN; +MORPHINE SULFATE 2 MG/ML SYRINGE IV PRN; -MORPHINE SULFATE 4 MG/ML SYRINGE IV PRN; -MORPHINE SULFATE 4 MG/ML SYRINGE IVP PRN; -ONDANSETRON 4 MG/2 ML VIAL IVP ONE
[2017-12-12] MEDS ORDERED: ALPRAZolam 0.25 MG TAB PO ONE (09:59)
[2017-12-12] MEDS: LACTATED RINGERS 1,000 ML IV SCH ×2 (10:02→11:50)
[2017-12-12] MEDS: ONDANSETRON 4 MG/2 ML VIAL IVP ONE ×2 (10:06→18:22)
[2017-12-12] MEDS: DEXAMETHASONE SOD PHOSPHATE 10 MG/ML 1 ML VIAL IV ONE ×2 (10:06→18:22)
--- NOTE | 2017-12-12 10:53 | NM ---
EXAMINATION TYPE: NM sentinel node injection DATE OF EXAM: 12/12/2017 COMPARISON: NONE HISTORY: Left breast carcinoma. TECHNIQUE AND FINDINGS: The procedure of sentinel lymph node injection was explained to the patient. The benefits, alternatives, and risks were discussed. An informed consent was then obtained. Overlying skin is cleaned with sterile alcohol. Following this, 560 uCi Tc99m Tilmanocept was inject ed into the subcutaneous left 2:00 position. The patient tolerated the procedure well without any immediate complication. The patient was kept in the radiology department for short stay after the procedure and then taken to surgery for surgical p rocedure what is presumed intraoperative gamma probe will be used for sentinel lymph node detection. IMPRESSION: Left breast radiotracer injection for sentinel node localization as above.
[2017-12-12] MEDS ORDERED: SUCCINYLCHOLINE CHLORIDE 100 MG/5 ML SYR IV ONE (11:50)
[2017-12-12] MEDS ORDERED: PROPOFOL 10 MG/ML 20 ML VIAL IV ONE (11:50)
[2017-12-12] MEDS ORDERED: fentaNYL (PF) 50 MCG/ML 2 ML AMP ONE (11:50)
[2017-12-12] MEDS ORDERED: ROCURONIUM BROMIDE 10 MG/ML 10 ML VIAL IV ONE (11:50)
[2017-12-12] MEDS ORDERED: LIDOCAINE 1% INJ 10MG/ML (20 ML MDV) ONE (11:50)
[2017-12-12] MEDS ORDERED: SODIUM CHLORIDE 0.9% 50 ML with ceFAZolin 1,000 MG IV ONE ×2 (12:18)
[2017-12-12] MEDS ORDERED: LACTATED RINGERS 1,000 ML IV ONE (13:05)
[2017-12-12] MEDS ORDERED: ceFAZolin 1,000 MG in SODIUM CHLORIDE 0.9% 1,000 ML IRRIGATION ONE (13:12)
[2017-12-12] MEDS ORDERED: BUPIVACAINE (PF) 0.25% 30 ML VIAL SQ ONE (13:30)
--- NOTE | 2017-12-12 13:52 | P.OP ---
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 Procedure(s) Performed: Left total mastectomy with left axillary sentinel lymph node biopsy Anesthesia: CYNTHIA Surgeon: Paulo Nichols Estimated Blood Loss (ml): 20 Pathology: other (Left mastectomy and left axillary sentinel lymph node) Condition: stable Indications for Procedure: Infiltrating ductal carcinoma left breast 2 The patient has 2 mammographic abnormalities on the left breast biopsy of which proved to be invasive ductal carcinoma the lateral side and the other in the lower portion of the lateral aspect of the breast. After extensive discussion it was recommended the procedure to have a left mastectomy accomplished probably a lot faster than the separate the lumpectomy and avoid radiation treatment. Also removal of 2 lesions on the lateral aspect of the breast with needle localization would result in a fair amount of of deformity the procedures was explained to her including potential complication particular of infection bleeding hematoma seroma recurrence pain numbness etc. she understood and agred to proceed. Operative Findings: Infiltrating ductal carcinoma left breast 2. Description of Procedure: After induction of general anesthesia the entire left chest and axilla and upper arm were prepped with DuraPrep and draped. Oval-shaped incision was made around the nipple areolar complex upper and lower flaps were created in the usual fashion. The breast was then dissected off the underlying musculature including the fascia starting medially. Fluoroscopy was identified and removed and submitted to pathology. The wound was then thoroughly irrigated after the breast was removed. Hemostasis was good and the field was dry. 2 PARKER drains were placed under the flap and brought out through separate stab wounds in the lateral aspect of the. Closure was then achieved with the running go through the subcutaneous tissues that were also approximated to the underlying pectoral muscle. The skin was closed with 4-0 Monocryl subcuticular suture and Steri- Strips. Dressings were applied. All counts were correct. Blood loss was minimal less than 20 amounts. The patient remained stable and was transferred to the recovery room in good and stable condition.
[2017-12-12] MEDS ORDERED: MORPHINE SULFATE/PF 10MG/10ML VL IVP PRN (13:57)
[2017-12-12] MEDS ORDERED: ONDANSETRON 4 MG/2 ML VIAL IVP PRN (13:58)
[2017-12-12] MEDS ORDERED: hydrALAZINE HCL 20 MG/ML 1 ML VIAL IVP ONE ×2 (14:00→14:11)
[2017-12-12] MEDS ORDERED: D5-0.45% NACL WITH KCL 20MEQ/L 1,000 ML IV SCH (14:00)
[2017-12-12] MEDS ORDERED: ceFAZolin 1,000 MG in DEXTROSE/WATER 1 50ML.BAG IVPB STA ×3 (14:06→14:13)
[2017-12-12] MEDS: ACETAMINOPHEN TAB 325 MG TAB PO PRN ×2 (16:46→22:50)
[2017-12-12] MEDS: HEPARIN SODIUM,PORCINE 5,000 UNIT/ML 1 ML VIAL SQ SCH (21:31)
[2017-12-13] MEDS: ACETAMINOPHEN TAB 325 MG TAB PO PRN (08:09)
--- NOTE | 2017-12-13 08:09 | P.PN ---
Progress Note - Text Progress Note Date: 12/13/17 The patient is stable 1 post-left total mastectomy with left axillary sentinel lymph node biopsy which was negative for metastatic disease. She is coming along well. Vitals are stable. She is awake alert. Tolerating a diet. PARKER output is not excessive. Labs are pending. Dressings are dry. PARKER drains are intact. Stable postoperative course. Recommendation in view of her age and disability we will monitor her another day. Arrangements for him home care. DisCharge in the next day or so.
[2017-12-13] MEDS: HEPARIN SODIUM,PORCINE 5,000 UNIT/ML 1 ML VIAL SQ SCH ×2 (09:07→22:11)
[2017-12-13] MEDS ORDERED: MECLIZINE 12.5 MG TAB PO PRN (10:11)
[2017-12-13] MEDS: METOPROLOL TARTRATE 25 MG TAB PO SCH ×2 (11:31→22:11)
[2017-12-13] MEDS: LOSARTAN 50 MG TAB PO SCH (11:32)
[2017-12-13] MEDS ORDERED: HYDROmorphone 2 MG TAB PO PRN (15:28)
[2017-12-13 15:30] LABS: Basophils % (A) 0 %; Eosinophils # (A) 0.1 k/uL (0-0.7); Eosinophils % (A) 1 %; HCT 30.4 % (34.0-46.0); HGB 9.5 gm/dL (11.4-16.0); Lymphocytes # (A) 1.9 k/uL (1.0-4.8); Lymphocytes % (A) 22 %; MCH 30.4 pg (25.0-35.0); MCHC 31.4 g/dL (31.0-37.0); MCV 96.9 fL (80.0-100.0); Mean Platelet Volume 7.5; Monocytes # (A) 0.6 k/uL (0-1.0); Monocytes % (A) 7 %; Neutrophils # (A) 5.9 k/uL (1.3-7.7); Neutrophils % (A) 68 %; Platelet Count 215 k/uL (150-450); RBC 3.14 m/uL (3.80-5.40); RDW 13.6 % (11.5-15.5); WBC 8.7 k/uL (3.8-10.6)
--- NOTE | 2017-12-13 15:53 | P.CONS ---
History of Present Illness - Reason for Consult Consult date: 12/13/17 - History of Present Illness This is an 86-year-old female patient of Dr. Cooney with a past medical history of hypertension, hyperlipidemia, mitral valve prolapse, chronic urinary tract infection, vertigo, right-sided breast cancer diagnosed in 2009 status post lumpectomy and radiation, skin cancer in the left forearm one year ago removed by Dr. Nichols, recently diagnosed with left sided breast cancer. Patient states that she felt 2 lumps in the left breast and came in for elective surgery with Dr. Nichols with left-sided mastectomy. She denies any chest pain, shortness of breath, abdominal pain, nausea or vomiting. She denies any edema. She states her left chest area is sore only. Patient's sister is at the bedside. Patient is noted to have some very mild confusion but apparently is at her baseline. Review of Systems All systems: negative Constitutional: Denies anorexia, Denies chills, Denies fever, Denies poor appetite, Denies sweats, Denies weight loss Eyes: denies blurred vision, denies pain Ears, nose, mouth and throat: Reports vertigo, Denies headache, Denies sore throat Cardiovascular: Denies chest pain, Denies decreased exercise tolerance, Denies dyspnea on exertion, Denies edema, Denies leg edema, Denies lightheadedness, Denies shortness of breath, Denies syncope Respiratory: Denies congestion, Denies cough, Denies cough with sputum, Denies dyspnea, Denies excessive sputum, Denies hemoptysis, Denies home oxygen, Denies wheezing Gastrointestinal: Denies abdominal pain, Denies diarrhea, Denies nausea, Denies vomiting Genitourinary: Denies dysuria, Denies hematuria Musculoskeletal: Denies myalgias Integumentary: Denies pruritus, Denies rash Neurological: Denies numbness, Denies weakness Psychiatric: Denies anxiety, Denies depression Endocrine: Denies fatigue, Denies weight change Past Medical History Past Medical History: Cancer, Hyperlipidemia, Hypertension, Mitral Valve Prolapse (MVP), Syncope Additional Past Medical History / Comment(s): Chronic UTI, ON PO AB SINCE 2016. Vertigo. HX RT BREAST CA 2009; SKIN CA. History of Any Multi-Drug Resistant Organisms: None Reported Past Surgical History: Adenoidectomy, Appendectomy, Back Surgery, Cholecystectomy, Hysterectomy, Tonsillectomy Additional Past Surgical History / Comment(s): Cystocele, Rectocele. BACK X3 surgery 02/16/2017, HAS GURINDER. Bilat cataracts. June 2010- RT Breast cancer/ radiation/lumpectomy. 12-03 left breast mastectomy Past Anesthesia/Blood Transfusion Reactions: Motion Sickness, Postoperative Nausea & Vomiting (PONV) Past Psychological History: No Psychological Hx Reported Smoking Status: Never smoker Past Alcohol Use History: None Reported Additional Past Alcohol Use History / Comment(s): Patient has been a life-long nonsmoker, no drug use, no alcohol use. She is a . Past Drug Use History: None Reported - Past Family History Mother Family Medical History: No Reported History Additional Family Medical History / Comment(s): Mother at age 62 from diabetes complication with history of coronary artery disease. Father Additional Family Medical History / Comment(s): Father at age 70 from [place]. Sister(s) Additional Family Medical History / Comment(s): Patient has a sister with history of 2vessel CABG and 2 cardiac ablation. Brother(s) Additional Family Medical History / Comment(s): Patient has one brother with history of CHF. Son(s) Additional Family Medical History / Comment(s): Patient has one son with history of [place] and gallbladder disease. Medications and Allergies Home Medications Medication Instructions Recorded Confirmed Type Losartan Potassium [Cozaar] 100 mg PO DAILY 10/16/16 12/12/17 History Acetaminophen Tab [Tylenol Tab] 1,000 mg PO BID PRN 03/28/17 12/12/17 History Meclizine [Antivert] 12.5 mg PO BID 03/28/17 12/12/17 History Metoprolol Tartrate [Lopressor] 75 mg PO BID 03/28/17 12/12/17 History Ergocalciferol (Vitamin D2) 50,000 unit PO Q14D 10/23/17 12/12/17 History [Vitamin D2] Sulfamethox-Tmp 800-160Mg [Bactrim 1 tab PO HS 11/22/17 12/12/17 History DS 800-160 mg] Ascorbic Acid [Vitamin C] 500 mg PO DAILY 12/05/17 12/12/17 History Cranberry Capsule 1 cap PO BID 12/05/17 12/12/17 History Allergies Allergy/AdvReac Type Severity Reaction Status Date / Time celecoxib [From Celebrex] Allergy Nausea Verified 12/12/17 14:20 codeine Allergy Nausea & Verified 12/12/17 14:20 Vomiting hydrocodone Allergy Nausea & Verified 12/12/17 14:20 Vomiting nitrofurantoin Allergy Nausea Verified 12/12/17 14:20 [From Macrobid] tramadol [From Ultram] Allergy Nausea & Verified 12/12/17 14:20 Vomiting Physical Exam Vitals: Vital Signs Temp Pulse Pulse Resp BP Pulse Ox 12/13/17 08:10 97.6 F 83 16 109/61 97 12/13/17 02:20 97.6 F 68 18 131/64 97 12/12/17 20:17 98 F 74 20 107/59 97 12/12/17 18:40 85 124/59 97 12/12/17 17:40 82 111/49 91 L 12/12/17 17:00 85 120/60 95 12/12/17 16:40 83 18 107/48 100 12/12/17 16:10 79 18 121/60 96 12/12/17 15:40 83 16 117/58 96 12/12/17 15:25 85 16 116/61 97 12/12/17 15:10 82 16 129/52 94 L 12/12/17 14:55 97.0 F L 86 14 145/61 96 12/12/17 14:15 75 18 186/79 95 12/12/17 14:00 72 16 207/88 98 12/12/17 13:51 97.1 F L 61 16 205/93 199 H Intake and Output 12/12/17 12/13/17 12/13/17 22:59 06:59 14:59 Intake Total 330 Output Total 326 90 Balance 4 -90 Intake: Oral 330 Output: Drainage 75 90 Drain 1 25 55 Drain 2 50 35 Urine 251 Other: # Voids 200 1 1 Gen: This is an 86-year-old seen sitting in a chair in no acute distress. HEENT: Head is atraumatic, normocephalic. Pupils equal, round. Sclerae is anicteric. NECK: Supple. No JVD. No lymphadenopathy. No thyromegaly. LUNGS: Clear to auscultation. No wheezes or rhonchi. No intercostal retractions. HEART: Regular rate and rhythm. No murmur. CHEST: Dressing in place to the left breast. ABDOMEN: Soft. Bowel sounds are present. No masses. No tenderness. EXTREMITIES: No pedal edema. No calf tenderness. NEUROLOGICAL: Patient is awake, alert and oriented x3. Cranial nerves 2 through 12 are grossly intact. 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 Nichols. COntinue current care per Dr. Nichols 2. Hypertension. Continue losartan 100 mg daily, Lopressor 75 mg twice daily. Hold for systolic blood pressure less than 110. 3. Chronic vertigo. Continue Antivert 12.5 mg twice daily as needed. Patient was given instructions to follow Rowena maneuver. 4. Vitamin D deficiency. Patient can resume on discharge from the hospital. 5. Chronic urinary tract infections. Patient is on chronic Bactrim once daily. 6. DVT prophylaxis. Heparin subcu. 7. GI prophylaxis. Pepcid. Discharge plan: home with [facility] Impression and plan of care have been directed as dictated by the signing physician. Lucie Doss nurse practitioner acting as scribe for signing physician.
[2017-12-14 05:45] VITALS: TEMP 97.3
[2017-12-14] MEDS ORDERED: FAMOTIDINE 20 MG TAB PO SCH (09:00)
[2017-12-14 09:10] VITALS: BP 147/68; PULSE 68; RESP 19
[2017-12-14] MEDS: LOSARTAN 50 MG TAB PO SCH (09:12)
[2017-12-14] MEDS: HEPARIN SODIUM,PORCINE 5,000 UNIT/ML 1 ML VIAL SQ SCH (09:12)
[2017-12-14] MEDS: METOPROLOL TARTRATE 25 MG TAB PO SCH (09:12)
--- NOTE | 2017-12-14 18:15 | P.DS ---
Providers Date of admission: 12/12/17 08:34 Attending physician: Paulo Nichols Consults: 12/12/17 14:04 Consult Physician Routine Consulting Provider: Flaco Amor Reason/Comments: Medical management Do you want consulting provider notified?: Yes Primary care physician: Flaco Amor Plan - Discharge Summary Discharge Rx Participant: Yes New Discharge Prescriptions: No Action Losartan Potassium [Cozaar] 100 mg PO DAILY Meclizine [Antivert] 12.5 mg PO BID Acetaminophen Tab [Tylenol Tab] 1,000 mg PO BID PRN PRN Reason: PAIN, SLEEP Metoprolol Tartrate [Lopressor] 75 mg PO BID Ergocalciferol (Vitamin D2) [Vitamin D2] 50,000 unit PO Q14D Sulfamethox-Tmp 800-160Mg [Bactrim DS 800-160 mg] 1 tab PO HS Ascorbic Acid [Vitamin C] 500 mg PO DAILY Cranberry Capsule 1 cap PO BID Discharge Medication List Losartan Potassium [Cozaar] 100 mg PO DAILY 10/16/16 [History] Acetaminophen Tab [Tylenol Tab] 1,000 mg PO BID PRN 03/28/17 [History] Meclizine [Antivert] 12.5 mg PO BID 03/28/17 [History] Metoprolol Tartrate [Lopressor] 75 mg PO BID 03/28/17 [History] Ergocalciferol (Vitamin D2) [Vitamin D2] 50,000 unit PO Q14D 10/23/17 [History] Sulfamethox-Tmp 800-160Mg [Bactrim DS 800-160 mg] 1 tab PO HS 11/22/17 [History] Ascorbic Acid [Vitamin C] 500 mg PO DAILY 12/05/17 [History] Cranberry Capsule 1 cap PO BID 12/05/17 [History] Follow up Appointment(s)/Referral(s): Paulo Nichols MD [STAFF PHYSICIAN] - 12/18/17 2:30 pm [facility] Visiting Nurse, [NON-STAFF] - Patient Instructions/Handouts: Mastectomy (DC) Activity/Diet/Wound Care/Special Instructions: Home care to record output per drains QD & change dressings QD. Hi fiber diet. ( see diet sheet) Diet as tolerated. drink fluids. Incision and drains to be monitored by home care nurse. call office for any fever, chills. increased pain , increased edema, discolored drainage from incision or significant increase in drainage from red drains, or any concerns. continue to move left arm. but no pulling or heavy lifting. Continue to use incentive spirometery at home. Discharge Disposition: HOME WITH HOME HEALTH SERVICES
== END 2017-12-14 11:40 | disposition home health service (06) | DRG 581 ==
LOC: 2ORMAIN 08:34 → 6PED 14:19
PROVIDERS: ADMIT Surgery; ATTEND Surgery
PROC: 07B60ZX Excision of Left Axillary Lymphatic, Open Approach, Diagnostic (ICD-10-PCS; principal; 2017-12-12 11:30)
PROC: 0HTU0ZZ Resection of Left Breast, Open Approach (ICD-10-PCS; 2017-12-12 11:30)
DX: C50.512 Malignant neoplasm of lower-outer quadrant of left female breast (principal); I34.1 Nonrheumatic mitral (valve) prolapse; E55.9 Vitamin D deficiency, unspecified; E78.00 Pure hypercholesterolemia, unspecified; M81.0 Age-related osteoporosis without current pathological fracture; M19.90 Unspecified osteoarthritis, unspecified site; R42 Dizziness and giddiness; I10 Essential (primary) hypertension; Z79.899 Other long term (current) drug therapy; Z82.49 Family history of ischemic heart disease and other diseases of the circulatory system; Z83.3 Family history of diabetes mellitus; Z92.3 Personal history of irradiation; Z79.82 Long term (current) use of aspirin; Z88.5 Allergy status to narcotic agent; Z88.8 Allergy status to other drugs, medicaments and biological substances; Z90.710 Acquired absence of both cervix and uterus; Z85.828 Personal history of other malignant neoplasm of skin; Z98.42 Cataract extraction status, left eye; Z98.41 Cataract extraction status, right eye; Z87.440 Personal history of urinary (tract) infections; Z79.2 Long term (current) use of antibiotics; Z88.1 Allergy status to other antibiotic agents
CPT/HCPCS: 38792; 85025; 88307; 88309; 88331; 88341; 88342

== ENCOUNTER 2018-08-29 09:42 | Emergency (ER) | payer MEDICARE, BC ==
[2018-08-29 09:49] VITALS: TEMP 98.1
--- NOTE | 2018-08-29 10:35 | ED ---
General Adult HPI - General Chief complaint: Extremity Injury, Upper Stated complaint: Fall-hand/wrist injury Time Seen by Provider: 08/29/18 10:00 Source: patient, RN notes reviewed Mode of arrival: wheelchair Limitations: no limitations - History of Present Illness Initial comments: This is an 87-year-old female who states last night she tripped and fell on her right hand and she complains of wrist pain today and swelling about the wrist pain patient denies any hand pain or finger pain. Patient denies elbow pain or any shoulder pain. Patient denies headache patient denies numbness weakness. Patient denies any neck pain. Patient denies any other injury at this time. Patient's blood pressure was elevated but she states she just took her blood pressure medicine prior to arrival and she's very anxious. - Related Data Home Medications Medication Instructions Recorded Confirmed Losartan Potassium [Cozaar] 100 mg PO DAILY 10/16/16 08/29/18 Meclizine [Antivert] 12.5 mg PO DAILY 03/28/17 08/29/18 Metoprolol Tartrate [Lopressor] 75 mg PO BID 03/28/17 08/29/18 Ergocalciferol (Vitamin D2) 50,000 unit PO Q14D 10/23/17 08/29/18 [Vitamin D2] Ascorbic Acid [Vitamin C] 500 mg PO DAILY 12/05/17 08/29/18 Aspirin EC [Ecotrin Low Dose] 81 mg PO HS 08/29/18 08/29/18 Calcium Carbonate [Calcium] 600 mg PO DAILY 08/29/18 08/29/18 Magnesium 200 mg PO DAILY 08/29/18 08/29/18 Vitamin B Complex 1 cap PO DAILY 08/29/18 08/29/18 Allergies Allergy/AdvReac Type Severity Reaction Status Date / Time celecoxib [From Celebrex] Allergy Nausea Verified 08/29/18 09:58 codeine Allergy Nausea & Verified 08/29/18 09:58 Vomiting hydrocodone Allergy Nausea & Verified 08/29/18 09:58 Vomiting nitrofurantoin Allergy Nausea Verified 08/29/18 09:58 [From Macrobid] tramadol [From Ultram] Allergy Nausea & Verified 08/29/18 09:58 Vomiting Review of Systems ROS Statement: Those systems with pertinent positive or pertinent negative responses have been documented in the HPI. ROS Other: All systems not noted in ROS Statement are negative. Past Medical History Past Medical History: Cancer, Hyperlipidemia, Hypertension, Mitral Valve Prolapse (MVP), Syncope Additional Past Medical History / Comment(s): Chronic UTI, ON PO AB SINCE 2016. Vertigo. HX RT BREAST CA 2009; SKIN CA. History of Any Multi-Drug Resistant Organisms: None Reported Past Surgical History: Adenoidectomy, Appendectomy, Back Surgery, Cholecystectomy, Hysterectomy, Tonsillectomy Additional Past Surgical History / Comment(s): Cystocele, Rectocele. BACK X3 surgery 02/16/2017, HAS GURINDER. Bilat cataracts. June 2010- RT Breast cancer/ radiation/lumpectomy. 12-03 left breast mastectomy Past Anesthesia/Blood Transfusion Reactions: Motion Sickness, Postoperative Nausea & Vomiting (PONV) Past Psychological History: No Psychological Hx Reported Smoking Status: Never smoker Past Alcohol Use History: None Reported Past Drug Use History: None Reported - Past Family History Mother Family Medical History: No Reported History Additional Family Medical History / Comment(s): Mother at age 62 from diabetes complication with history of coronary artery disease. Father Additional Family Medical History / Comment(s): Father at age 70 from [place]. Sister(s) Additional Family Medical History / Comment(s): Patient has a sister with history of 2vessel CABG and 2 cardiac ablation. Brother(s) Additional Family Medical History / Comment(s): Patient has one brother with history of CHF. Son(s) Additional Family Medical History / Comment(s): Patient has one son with history of [place] and gallbladder disease. General Exam - General Exam Comments Initial Comments: GENERAL Patient is well-developed and well-nourished. Patient is in mild distress. EYES Patient's pupils are equal and round. Extraocular motion is intact SKIN Unremarkable NEURO The patient is alert and oriented 3 PYSCH Patient has normal interpersonal interactions. MUSCULOSKELETAL Patient's right wrist is tender posteriorly and is very swollen. Hand has no areas of tenderness finger have no areas of tenderness Limitations: no limitations Course Vital Signs 08/29/18 08/29/18 08/29/18 09:47 10:41 11:03 Temperature 98.1 F Pulse Rate 70 Respiratory 20 Rate Blood Pressure 226/88 194/81 192/79 O2 Sat by Pulse 98 Oximetry Procedures - Orthopedic Splinting/Casting Injury #1 Side: right Upper Extremity Injury Location: wrist Upper Extremity Immobilizer: volar splint Medical Decision Making - Medical Decision Making X-ray shows a distal radial fracture. No displacement. I wanted the patient. Patient requested seeing Dr. Bangura. Disposition Clinical Impression: Distal radial fracture Disposition: HOME SELF-CARE Condition: Good Instructions: Wrist Fracture in Adults (ED) Is patient prescribed a controlled substance at d/c from ED?: No Referrals: Flaco Amor MD [Primary Care Provider] - 1-2 days Juan Carlos Bangura DO [Doctor of Osteopathic Medicine] - 1-2 days Time of Disposition: 11:11
--- NOTE | 2018-08-29 11:03 | XR ---
EXAMINATION TYPE: XR wrist complete RT DATE OF EXAM: 08/29/2018 COMPARISON: None HISTORY: Pain swelling bruising from fall TECHNIQUE: 4 view right wrist FINDINGS: There is diffuse soft tissue swelling present. There are couple of subtle cortical changes within the distal metaphysis of the radius. An occult fracture of the distal radius should be considered. Follo w-up exam can be performed in 7-10 days for confirmation. No additional areas suspicious for fracture is evident. IMPRESSION: 1. Suspicion of an occult fracture of the distal metaphyseal right radius. Recommend treatment and f ollow-up.
[2018-08-29 11:29] VITALS: BP 190/78; PULSE 68; RESP 18
== END 2018-08-29 11:25 | disposition home or self-care (01) ==
LOC: EC 09:42
DX: S52.501A Unspecified fracture of the lower end of right radius, initial encounter for closed fracture (principal); I10 Essential (primary) hypertension; I34.1 Nonrheumatic mitral (valve) prolapse; Z85.3 Personal history of malignant neoplasm of breast; Z85.828 Personal history of other malignant neoplasm of skin; Z79.82 Long term (current) use of aspirin; Z79.899 Other long term (current) drug therapy; Z88.6 Allergy status to analgesic agent; Z88.5 Allergy status to narcotic agent; Z88.1 Allergy status to other antibiotic agents; W01.198A Fall on same level from slipping, tripping and stumbling with subsequent striking against other object, initial encounter; Y92.093 Driveway of other non-institutional residence as the place of occurrence of the external cause
CPT/HCPCS: 29125; 99283

== ENCOUNTER → 2018-12-13 | Outpatient (CLI) | payer MEDICARE, BC ==
--- NOTE | 2018-12-13 15:30 | XR ---
EXAMINATION TYPE: XR abdomen 1V DATE OF EXAM: 12/13/2018 COMPARISON: 03/28/2017 HISTORY: Pain TECHNIQUE: Single supine KUB image of the abdomen is obtained FINDINGS: Small bowel demonstrates no evidence for dilatation or air fluid levels. Gas and fecal material is seen in non-distended colon. No convincing evidence for pneumoperitoneum. No unusual calcifications. The lung bases are clear. The osseous structures are intact. Postoperative changes of lumbar laminectomy and fusion. IMPRESSION: 1. Overall nonobstructive bowel gas pattern.
== END | disposition home or self-care (01) ==
LOC: RADXRMAIN 14:59
PROVIDERS: ATTEND Nurse Practitioner Family
DX: R10.9 Unspecified abdominal pain (principal)
CPT/HCPCS: 74018

== ENCOUNTER → 2020-03-11 | Outpatient (CLI) | payer MEDICARE, BC ==
--- NOTE | 2020-03-11 11:19 | MM ---
Reason for exam: clinical finding. Last mammogram was performed 2 years and 3 months ago. History: Patient is postmenopausal and has history of breast cancer at age 86. Family history of breast cancer in paternal aunt. Mastectomy of the left breast, December 12, 2017. Malignant US biopsy breast VAD LT of the left breast, November 28, 2017. Malignant US biopsy breast VAD LT of the left breast, October 30, 2017. Radiation therapy of the right breast, June 2010. Lumpectomy of the right breast, 2008. Took progesterone for 20 years. Physical Findings: Nurse Summary: 1 x 1cm nodule in the right breast at 3 o'clock (nurse ts). MG 3D Diag Mammo W/Cad RT CC and MLO view(s) were taken of the right breast. Prior study comparison: November 28, 2017, left breast MG diagnostic mammo LT wo CAD. October 30, 2017, left breast MG diagnostic mammo LT wo CAD. The breast tissue is heterogeneously dense. This may lower the sensitivity of mammography. Stable benign calcifications. There is no discrete abnormality. No significant new findings when compared with previous films. These results were verbally communicated with the patient and result sheet given to the patient on 03/11/20. ASSESSMENT: Benign, BI-RAD 2 RECOMMENDATION: Follow-up diagnostic mammogram of the right breast in 1 year.
== END | disposition home or self-care (01) ==
LOC: RADMAMWWP 10:29
PROVIDERS: ATTEND Internal Medicine Geriatric Medicine
DX: N63.10 Unspecified lump in the right breast, unspecified quadrant (principal)
CPT/HCPCS: 77065; G0279; 77061